=== PATIENT | male | born 1995 | race Two or more races ===

== ENCOUNTER 2019-09-05 21:19 | Emergency (ER) | payer MEDICAID ==
[~2019-09-05] VITALS: Ht 182.9 cm; Wt 96.0 kg
[2019-09-05] MEDS ORDERED: AMOXICILLIN/POTASSIUM CLAVULANATE 875/125MG TAB PO ONE (23:15)
[2019-09-05] MEDS ORDERED: TRAMADOL 50MG TABLET PO ONE (23:15)
[2019-09-06] MEDS ORDERED: TETANUS, DIPHTHERIA, PERTUSSIS VAC/PF 0.5ML (>7YR OLD) IM ONE
[2019-09-06 01:44] VITALS: BP 120/75
== END 2019-09-06 01:45 | disposition home or self-care (01) ==
LOC: ER 21:19
DX: S61.212A Laceration without foreign body of right middle finger without damage to nail, initial encounter (principal); S61.210A Laceration without foreign body of right index finger without damage to nail, initial encounter; W54.0XXA Bitten by dog, initial encounter; Y93.89 Activity, other specified; Y92.89 Other specified places as the place of occurrence of the external cause; Y99.8 Other external cause status
CPT/HCPCS: 73140; 90471; 90715; 99283